=== PATIENT | female | born 1945 | race Caucasian/White ===

== ENCOUNTER → 2016-11-20 | Outpatient (CLI) | payer BC ==
[~2016-11-20] MED LIST: ADALIMUMAB SC; ANT25 PO; ASPI-435 PO; ATOR10TA82 PO; CENTRUM SILVERSILVE2 PO; CITRACAL PO; CZR50 PO; FLV1 PO; FOLI200T PO; GADAVIST IV PRN; METH2.5T PO; MISCTAB78 PO; NRV/5 PO; OMEP20CA9 PO; SENNTAB23 PO; TPRSR/50 PO; [UNRECOGNIZED DRUG - CODE] PO; [UNRECOGNIZED DRUG - OTHER] PO; [UNRECOGNIZED DRUG - OTHER] PO
[2016-11-20 13:24] LABS: BLOOD UREA NITROGEN 16 mg/dl (7-18); CREATININE 0.94 mg/dl (0.60-1.20)
--- NOTE | 2016-11-20 15:49 | DIAGNOSTIC IMAGING REPORT ---
MRI OF THE BRAIN WITHOUT AND WITH IV CONTRAST CLINICAL HISTORY: Left greater than right sensorineural hearing loss. COMPARISON STUDY: MRI of the brain July 29, 2012. TECHNIQUE: Utilizing a 1.5 Diamond magnet and dedicated coil, multiplanar, multiecho imaging of the brain was performed pre and postcontrast administration. IV administration of 5.5 mL of Gadavist contrast was uneventful. FINDINGS: There are no areas of restricted diffusion. No acute intracranial hemorrhage, midline shift or mass effect is present. Brain is normal for age. Ventricular system is normal. Basilar cisterns are patent. Flow-voids for the major intracranial vessels are present. There are no intracranial masses or areas of pathologic enhancement. There are no abnormalities within the internal auditory canals. No cerebellopontine angle mass is present. There is no fluid within the mastoid air. Semicircular canals are intact. There is mild mucosal thickening of the right maxillary sinus with a small air-fluid level. IMPRESSION: 1. Unremarkable MRI of the brain. 2. No abnormalities within the internal auditory canals. 3. Mild right maxillary sinus mucosal thickening and a small air-fluid level which may reflect acute sinusitis. Electronically signed by: Keyon Thompson M.D. 11/20/2016 3:48 PM Dictated Date/Time: 11/20/2016 3:41 PM
== END | disposition home or self-care (01) ==
LOC: C.MRI 12:20
DX: H90.42 Sensorineural hearing loss, unilateral, left ear, with unrestricted hearing on the contralateral side (principal)

== ENCOUNTER → 2017-01-20 | Outpatient (CLI) | payer BC ==
[~2017-01-20] MED LIST changes: -GADAVIST IV PRN
[2017-01-20 18:22] LABS: URINE APPEARANCE CLEAR (CLEAR); URINE BILIRUBIN NEG (NEG); URINE COLOR YELLOW; URINE NITRITE NEG (NEG); URINE SPECIFIC GRAVITY 1.013 (1.000-1.030); UROBILINOGEN NEG (NEG)
[2017-01-20 18:25] LABS: MANUAL MICROSCOPIC REQUIRED? NO; REVIEW REQ? NO
== END | disposition home or self-care (01) ==
LOC: C.LAB 17:41
PROVIDERS: ATTEND Physician Assistant
DX: R35.0 Frequency of micturition (principal)

== ENCOUNTER → 2017-02-18 | Outpatient (CLI) | payer BC ==
[~2017-02-18] MED LIST changes: -ATOR10TA82 PO; +ATOR10TA88 PO
--- NOTE | 2017-02-19 12:30 | MAMMOGRAPHY REPORT ---
BILATERAL DIGITAL SCREENING MAMMOGRAM WITH CAD: 02/18/2017 CLINICAL HISTORY: Routine screening. Patient has no complaints. TECHNIQUE: Current study was also evaluated with a Computer Aided Detection (CAD) system. Bilateral CC and MLO views were obtained. COMPARISON: Comparison is made to exams dated: 01/29/2016 mammogram, 01/25/2015 mammogram, 12/13/2013 [place], 12/07/2012 mammogram, 12/04/2011 mammogram, and 12/01/2010 mammogram - [facility]. BREAST COMPOSITION: The tissue of both breasts is heterogeneously dense, which may obscure small mas ses. FINDINGS: No suspicious masses, calcifications, or areas of architectural distortion are noted in ei ther breast. There has been no significant interval change compared to prior exams. Scattered bilater al benign-appearing calcifications are not significantly changed. IMPRESSION: ACR BI-RADS CATEGORY 2: BENIGN There is no mammographic evidence of malignancy. A 1 year screening mammogram is recommended. The pa tient will receive written notification of the results. Approximately 10% of breast cancers are not detected with mammography. A negative mammographic report should not delay biopsy if a clinically suggestive mass is present. Carmen Torres M.D. /:02/18/2017 14:53:55 Policy Cancellation Clerk: Luana PEGUERO(Yahir)(Mag)(BD), [facility] letter sent: Normal 1/2 BI-RADS Code: ACR BI-RADS Category 2: Benign
== END | disposition home or self-care (01) ==
LOC: C.MAMM 12:58
PROVIDERS: ATTEND Obstetrics & Gynecology
DX: Z12.31 Encounter for screening mammogram for malignant neoplasm of breast (principal); H90.42 Sensorineural hearing loss, unilateral, left ear, with unrestricted hearing on the contralateral side

== ENCOUNTER 2017-03-12 20:22 | Emergency (ER) | payer BC ==
[~2017-03-12] VITALS: Ht 154.9 cm; Wt 60.8 kg
[~2017-03-12 20:22] MED LIST changes: -ANT25 PO; -ASPI-435 PO; -CZR50 PO; -FLV1 PO; -MISCTAB78 PO; -NRV/5 PO; -SENNTAB23 PO; -TPRSR/50 PO
[2017-03-12 20:24] VITALS: TEMP 36.5; Ht 154.9 cm; Wt 60.8 kg
[2017-03-12] MEDS ORDERED: ONDANSETRON INJ 2 MG/ML 2 ML VIAL IV STA (21:39)
[2017-03-12] MEDS ORDERED: MECLIZINE HCL 25 MG TAB PO STA (21:39)
[2017-03-12] MEDS ORDERED: SODIUM CHLORIDE 0.9% 1000ML 1,000 ML IV STA (21:39)
[2017-03-12] MEDS ORDERED: SODIUM CHLORIDE 0.9% 1000ML 500 ML IV STA (21:39)
--- NOTE | 2017-03-12 21:39 | EMERGENCY ROOM VISIT NOTE ---
History Report prepared by Layla: Kevin Collado Under the Supervision of: Dr. Ben Luo M.D. First contact with patient: 21:32 Chief Complaint: DIZZY Stated Complaint: NAUSEA, DIZZY Nursing Triage Summary: Became dizzy and nauseated at 1830. She had taken a walk in the afternoon around 1500 and started drinking water thinking she was dehydrated, but it didn't help. Also drank some gatorade. Dizziness when sitting up, relieved with supine positioning. History of Present Illness The patient is a 71 year old female who presents to the Emergency Room with complaints of worsening dizziness that began at 1800 today, 3.5 hours prior to arrival. The patient notes that her dizziness began with a lack of balance and a "woozy" feeling. When she sat down and stood up again she felt as though "the room was spinning." The patient mentioned that she had gone for a long walk today and got very hot. She hydrated herself well following the walk, but continued to get dizzy. She denies any recent falls or traumatic injuries to her head, and does not have a headache. She has no history of stroke, and is not on any blood thinners. There have not been any urinary irregularities. 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 A total of 10 systems reviewed and were otherwise negative. Past Medical & Surgical Medical Problems: (1) Benign hypertension (2) HYPERLIPIDEMIA NEC/NOS (3) RHEUMATOID ARTHRITIS Family History Cancer Heart disease Hypertension Social History Smoking Status: Never Smoker Marital Status: Housing Status: lives with family Occupation Status: unemployed Current/Historical Medications Scheduled , 40 MG SC Q2W , 1 TAB PO DAILY , 1 TAB PO BID Amlodipine Besylate (Amlodipine Besylate), 5 MG PO QAM Aspirin (Aspirin 81), 81 MG PO QAM Atorvastatin (Lipitor), 10 MG PO DAILY Folic Acid (Folic Acid), 1 MG PO QAM Losartan Potassium (Losartan Potassium), 50 MG PO BID Methotrexate (Methotrexate), 10 MG PO WK Metoprolol Succinate (Metoprolol Succinate ER), 50 MG PO QAM Misc Natural Products (Osteo Bi-Flex Advanced Do), 1 TAB PO DAILY Omeprazole (Prilosec), 20 MG PO DAILY Sennosides-Docusate Sodium (Stool Softener), 1 TAB PO HS Scheduled PRN Meclizine HCl (Meclizine HCl), 1 TAB PO Q6H PRN for Dizziness or Vertigo Allergies Coded Allergies: No Known Allergies (Verified , 03/12/17) Physical Exam Vital Signs Date Time Temp Pulse Resp B/P (MAP) Pulse Ox O2 Delivery O2 Flow Rate FiO2 03/13/17 00:01 142/87 03/12/17 23:57 94 03/12/17 23:52 67 12 96 03/12/17 23:47 72 12 91 03/12/17 23:32 69 93 03/12/17 23:31 147/89 03/12/17 23:22 153/87 03/12/17 23:17 71 14 97 03/12/17 22:32 90 18 95 03/12/17 22:27 80 23 97 03/12/17 22:12 66 96 03/12/17 21:57 71 17 96 03/12/17 21:51 167/102 03/12/17 21:49 73 18 169/99 76 176/103 80 167/102 03/12/17 21:48 169/99 03/12/17 21:42 74 14 97 03/12/17 21:31 174/99 03/12/17 21:27 75 96 03/12/17 21:12 71 96 03/12/17 21:07 72 12 96 03/12/17 21:01 154/99 03/12/17 20:53 173/103 03/12/17 20:52 82 22 98 03/12/17 20:50 82 03/12/17 20:32 163/98 03/12/17 20:24 36.5 77 18 184/104 93 Room Air Physical Exam GENERAL: Patient is in no acute distress. HEENT: No acute trauma, normocephalic atraumatic, mucous membranes moist, no nasal congestion, no scleral icterus. No nystagmus. NECK: No stridor, no adenopathy, no meningismus, trachea is midline. LUNGS: Clear to auscultation bilaterally, no wheeze, no rhonchi, breath sounds equal. HEART: Without murmurs gallops or rubs, regular rate and rhythm. ABDOMEN: Soft, nontender, bowel sounds positive, no hernias, no peritonitis. EXTREMITIES: No cyanosis or edema, full range of motion of all the joints without pain or difficulty, no signs for acute trauma. NEUROLOGIC: No pronator drift or cerebellar dysfunction. No speech slur or facial droop appreciated on exam. Awake and Ox3. SKIN: No rash, no jaundice, no diaphoresis. Medical Decision & Procedures ER Provider Diagnostic Interpretation: Orthostatic vitals signs are negative. Radiology results as stated below per my review and radiologist interpretation: CT HEAD WITHOUT CONTRAST (CT) CLINICAL HISTORY: Acute change in mental status weakness COMPARISON STUDY: MRI the brain dated 11/20/2016 TECHNIQUE: Axial CT of the brain is performed from the vertex to the skull base. IV contrast was not administered for this examination. A dose lowering technique was utilized adhering to the principles of ALARA. CT DOSE: 537.48 mGy.cm FINDINGS: No intra or extra-axial mass lesions are visualized. There is no CT evidence of acute cortical infarction. There is no evidence of midline shift. There is no acute hemorrhage. No calvarial fractures are visualized. There is no evidence of pathologic ventricular dilatation. There is no evidence of acute sinusitis IMPRESSION: Normal noncontrast head CT for age Electronically signed by: Michael Bronson M.D. 03/12/2017 10:54 PM Dictated Date/Time: 03/12/2017 10:53 PM Laboratory Results 03/12/17 22:00 Red Blood Count 4.72, Mean Corpuscular Volume 87.1, Mean Corpuscular Hemoglobin 31.4, Mean Corpuscular Hemoglobin Concent 36.0, Mean Platelet Volume 11.4, Neutrophils (%) (Auto) 58.7, Lymphocytes (%) (Auto) 31.9, Monocytes (%) (Auto) 7.2, Eosinophils (%) (Auto) 1.5, Basophils (%) (Auto) 0.3, Neutrophils # (Auto) 4.35, Lymphocytes # (Auto) 2.36, Monocytes # (Auto) 0.53, Eosinophils # (Auto) 0.11, Basophils # (Auto) 0.02 03/12/17 22:00 Test 03/12/17 21:25 03/12/17 22:00 Urine Color YELLOW Urine Appearance CLEAR (CLEAR) Urine pH 8.5 (4.5-7.5) Urine Specific Ernest 1.011 (1.000-1.030) Urine Protein NEG (NEG) Urine Glucose (UA) NEG (NEG) Urine Ketones NEG (NEG) Urine Occult Blood NEG (NEG) Urine Nitrite NEG (NEG) Urine Bilirubin NEG (NEG) Urine Urobilinogen NEG (NEG) Urine Leukocyte Esterase NEG (NEG) White Blood Count 7.40 K/uL (4.8-10.8) Red Blood Count 4.72 M/uL (4.2-5.4) Hemoglobin 14.8 g/dL (12.0-16.0) Hematocrit 41.1 % (37-47) Mean Corpuscular Volume 87.1 fL (80-100) Mean Corpuscular Hemoglobin 31.4 pg (25-34) Mean Corpuscular Hemoglobin Concent 36.0 g/dl (32-36) Platelet Count 239 K/uL (130-400) Mean Platelet Volume 11.4 fL (7.4-10.4) Neutrophils (%) (Auto) 58.7 % Lymphocytes (%) (Auto) 31.9 % Monocytes (%) (Auto) 7.2 % Eosinophils (%) (Auto) 1.5 % Basophils (%) (Auto) 0.3 % Neutrophils # (Auto) 4.35 K/uL (1.4-6.5) Lymphocytes # (Auto) 2.36 K/uL (1.2-3.4) Monocytes # (Auto) 0.53 K/uL (0.11-0.59) Eosinophils # (Auto) 0.11 K/uL (0-0.5) Basophils # (Auto) 0.02 K/uL (0-0.2) RDW Standard Deviation 42.6 fL (36.4-46.3) RDW Coefficient of Variation 13.2 % (11.5-14.5) Immature Granulocyte % (Auto) 0.4 % Immature Granulocyte # (Auto) 0.03 K/uL (0.00-0.02) Anion Gap 7.0 mmol/L (3-11) Est Creatinine Clear Calc Drug Dose 50.0 ml/min Estimated GFR () 79.3 Estimated GFR (Non- 68.5 BUN/Creatinine Ratio 16.8 (10-20) Calcium Level 9.0 mg/dl (8.5-10.1) Total Bilirubin 0.6 mg/dl (0.2-1) Aspartate Amino Transf (AST/SGOT) U/L (15-37) Alanine Aminotransferase (ALT/SGPT) 23 U/L (12-78) Alkaline Phosphatase 83 U/L (45-117) Total Protein 8.2 gm/dl (6.4-8.2) Albumin 3.8 gm/dl (3.4-5.0) Globulin 4.4 gm/dl (2.5-4.0) Albumin/Globulin Ratio 0.9 (0.9-2) Thyroid Stimulating Hormone (TSH) 1.000 uIu/ml (0.300-4.500) Laboratory results reviewed by me. Medications Administered Medications (Trade) Dose Ordered Sig/Louie Route Start Time Stop Time Status Last Admin Dose Admin Sodium Chloride 500 ml @ 999 mls/hr Q31M STAT IV 03/12/17 21:39 03/12/17 22:09 DC 03/12/17 21:39 999 MLS/HR Ondansetron HCl (Zofran Inj) 4 mg NOW STAT IV 03/12/17 21:39 03/12/17 21:41 DC 03/12/17 22:37 4 MG Sodium Chloride 1,000 ml @ 200 mls/hr Q5H STAT IV 03/12/17 21:39 03/13/17 02:38 03/12/17 22:38 200 MLS/HR Meclizine HCl (Antivert Tab) 25 mg NOW STAT PO 03/12/17 21:39 03/12/17 21:41 DC 03/12/17 22:37 25 MG Sodium Chloride 500 ml @ 999 mls/hr Q31M STAT IV 03/12/17 22:51 03/12/17 23:22 DC 03/12/17 23:23 999 MLS/HR Meclizine HCl (Antivert 25MG Home Pack) 1 homepack UD ONCE PO 03/13/17 00:15 03/13/17 00:16 DC 03/13/17 00:18 1 HOMEPACK ECG Indication: other (Vertigo) Rate (beats per minute): 67 Rhythm: normal sinus Findings: RBBB, no acute ischemic change, no ectopy ED Course 2133: The patient was evaluated in room C8. A complete history and physical exam was performed. 2138: Ordered Antivert 25 mg PO, Sodium Chloride 1000 mL @ 200 mL/hr IV, Zofran 4 mg IV, Sodium Chloride 500 mL @ 999 mL/hr IV. 2251: Ordered Sodium Chloride 500 mL @ 999 mL/hr IV. Medical Decision Differential Diagnosis includes; Vertigo, Stroke, UTI, dehydration, anemia, electrolyte imbalance. There is no leukocytosis or anemia. Sodium somewhat low but not low enough to cause her symptoms. No evidence for renal failure. No hepatitis. The patient appears to be in a euthyroid state. Orthostatic vital signs were negative. Brain CT shows no acute bleed or mass effect. Urinalysis does not show infection. EKG shows a sinus rhythm, no acute ischemia. On exam, there are no focal neurologic deficits. The patient presents with what sounds like vertigo. She had been nauseated. She was worse with position change. She received IV saline, IV Zofran and oral meclizine. She feels improved but still dizzy at times. The patient's blood pressure was fairly high but she was asymptomatic. She states her normal blood pressure is not this high, she feels she may just be worried and anxious. Her blood pressure did come down to a reasonable number while here in the emergency room. The patient is being discharged on oral meclizine for presumed vertigo. She may have a component of dehydration here as well as she was outside today and sweating quite a bit. The patient was encouraged to return here if not continuing to improve. She was discharged feeling better than when she had first arrived. Medication Reconcilliation Current Medication List: was personally reviewed by me Blood Pressure Screening Patient's blood pressure: Elevated blood pressure Blood pressure disposition: Elevated BP felt to be situational Impression Primary Impression: Vertigo Additional Impression: Dehydration Scribe Attestation The scribe's documentation has been prepared under my direction and personally reviewed by me in its entirety. I confirm that the note above accurately reflects all work, treatment, procedures, and medical decision making performed by me. Departure Information Dispostion Home / Self-Care Prescriptions Meclizine HCl (Meclizine HCl) 25 Mg Tab 1 TAB PO Q6H Y for Dizziness or Vertigo, #10 TAB Prov: Ben Luo M.D. 03/13/17 Referrals No Doctor, Assigned (PCP) Patient Instructions My [facility] Problem Qualifiers
[2017-03-12 22:16] LABS: BASO % 0.3 %; BASO ABS # 0.02 K/uL (0-0.2); COMPLETE YES; EOS % 1.5 %; HEMATOCRIT 41.1 % (37-47); IG% 0.4 %; LYMPH % 31.9 %; LYMPH ABS # 2.36 K/uL (1.2-3.4); MEAN CELL VOLUME 87.1 fL (80-100); MEAN CORPUSCULAR HEMOGLOBIN 31.4 pg (25-34); MEAN PLATELET VOLUME 11.4 fL (7.4-10.4); MONO % 7.2 %; NEUT % 58.7 %; PLATELET COUNT 239 K/uL (130-400); RED BLOOD COUNT 4.72 M/uL (4.2-5.4)
[2017-03-12 22:21] LABS: URINE APPEARANCE CLEAR (CLEAR); URINE BILIRUBIN NEG (NEG); URINE COLOR YELLOW; URINE NITRITE NEG (NEG); URINE PH 8.5 (4.5-7.5); URINE SPECIFIC GRAVITY 1.011 (1.000-1.030); UROBILINOGEN NEG (NEG); ZZUR CULT IF INDIC CLEAN CATCH NO
[2017-03-12 22:28] LABS: MANUAL MICROSCOPIC REQUIRED? NO; REVIEW REQ? NO
[2017-03-12 22:47] LABS: ALB/GLOB RATIO 0.9 (0.9-2); ALKALINE PHOSPHATASE 83 U/L (45-117); ALT/SGPT 23 U/L (12-78); BLOOD UREA NITROGEN 14 mg/dl (7-18); BUN/CREATININE RATIO 16.8 (10-20); CARBON DIOXIDE 25 mmol/L (21-32); CHLORIDE 98 mmol/L (98-107); CREATININE 0.85 mg/dl (0.60-1.20); GLUCOSE 99 mg/dl (70-99); SODIUM 130 mmol/L (136-145)
[2017-03-12] MEDS ORDERED: SODIUM CHLORIDE 0.9% 500ML 500 ML IV STA (22:51)
--- NOTE | 2017-03-12 22:55 | DIAGNOSTIC IMAGING REPORT ---
CT HEAD WITHOUT CONTRAST (CT) CLINICAL HISTORY: Acute change in mental status weakness COMPARISON STUDY: MRI the brain dated 11/20/2016 TECHNIQUE: Axial CT of the brain is performed from the vertex to the skull base. IV contrast was not administered for this examination. A dose lowering technique was utilized adhering to the principles of ALARA. CT DOSE: 537.48 mGy.cm FINDINGS: No intra or extra-axial mass lesions are visualized. There is no CT evidence of acute cortical infarction. There is no evidence of midline shift. There is no acute hemorrhage. No calvarial fractures are visualized. There is no evidence of pathologic ventricular dilatation. There is no evidence of acute sinusitis IMPRESSION: Normal noncontrast head CT for age Electronically signed by: Michael Bronson M.D. 03/12/2017 10:54 PM Dictated Date/Time: 03/12/2017 10:53 PM
[2017-03-12] MEDS ORDERED: ASPI-435 PO (23:08)
[2017-03-12] MEDS ORDERED: MISCTAB78 PO (23:08)
[2017-03-12] MEDS ORDERED: CZR50 PO (23:08)
[2017-03-12] MEDS ORDERED: FLV1 PO (23:08)
[2017-03-12] MEDS ORDERED: SENNTAB23 PO (23:09)
[2017-03-12] MEDS ORDERED: NRV/5 PO (23:09)
[2017-03-12] MEDS ORDERED: TPRSR/50 PO (23:09)
[2017-03-12 23:52] VITALS: PULSE 67
[2017-03-12 23:57] VITALS: O2SAT 94
[2017-03-13 00:01] VITALS: BP 142/87
[2017-03-13] MEDS ORDERED: ANT25 PO (00:09)
[2017-03-13] MEDS ORDERED: MECLIZINE HCL 25MG HOME PACK PO ONE (00:15)
== END 2017-03-13 00:24 | disposition home or self-care (01) ==
LOC: C.EDB 20:23 → C.EDC 03-13 00:24
DX: R42 Dizziness and giddiness (principal); E86.0 Dehydration; I45.10 Unspecified right bundle-branch block; I10 Essential (primary) hypertension; E78.5 Hyperlipidemia, unspecified; M06.9 Rheumatoid arthritis, unspecified; Z79.82 Long term (current) use of aspirin; Z79.899 Other long term (current) drug therapy; Z80.9 Family history of malignant neoplasm, unspecified; Z82.49 Family history of ischemic heart disease and other diseases of the circulatory system

== ENCOUNTER → 2017-04-19 | Outpatient (CLI) | payer BC ==
[~2017-04-19] MED LIST changes: +ANT25 PO; +ASPI-435 PO; +CZR50 PO; +FLV1 PO; -FOLI200T PO; +MISCTAB78 PO; +NRV/5 PO; +SENNTAB23 PO; +TPRSR/50 PO; -[UNRECOGNIZED DRUG - CODE] PO; -[UNRECOGNIZED DRUG - OTHER] PO
[2017-04-19 14:03] LABS: BASO % 0.3 %; BASO ABS # 0.02 K/uL (0-0.2); COMPLETE YES; EOS % 2.1 %; HEMATOCRIT 39.5 % (37-47); IG% 0.9 %; LYMPH % 32.2 %; LYMPH ABS # 2.27 K/uL (1.2-3.4); MEAN CELL VOLUME 89.4 fL (80-100); MEAN CORPUSCULAR HEMOGLOBIN 31.4 pg (25-34); MEAN CORPUSCULAR HGB CONC 35.2 g/dl (32-36); MEAN PLATELET VOLUME 12.7 fL (7.4-10.4); MONO % 6.8 %; NEUT % 57.7 %; PLATELET COUNT 237 K/uL (130-400); RED BLOOD COUNT 4.42 M/uL (4.2-5.4); WHITE BLOOD COUNT 7.05 K/uL (4.8-10.8)
[2017-04-19 14:25] LABS: ALB/GLOB RATIO 0.9 (0.9-2); ALT/SGPT 24 U/L (12-78); AST/SGOT 17 U/L (15-37); BLOOD UREA NITROGEN 15 mg/dl (7-18); BUN/CREATININE RATIO 17.9 (10-20); CARBON DIOXIDE 25 mmol/L (21-32); CHLORIDE 106 mmol/L (98-107); CHOLESTEROL 194 mg/dl (0-200); CHOLESTEROL/HDL RATIO 3.6; CREATININE 0.82 mg/dl (0.60-1.20); GLUCOSE 88 mg/dl (70-99); HDL CHOLESTEROL 54 mg/dl; LDL CHOLESTEROL CALCULATED 104 mg/dl; POTASSIUM 3.9 mmol/L (3.5-5.1); SODIUM 137 mmol/L (136-145); TRIGLYCERIDES 179 mg/dl (0-150); VERY LOW DENSITY LIPOPROT CALC 36 mg/dl
[2017-04-19 14:33] LABS: ALKALINE PHOSPHATASE 82 U/L (45-117)
== END | disposition home or self-care (01) ==
LOC: C.LABBC 10:26
PROVIDERS: ATTEND Internal Medicine Geriatric Medicine
DX: M06.9 Rheumatoid arthritis, unspecified (principal); M85.80 Other specified disorders of bone density and structure, unspecified site; E04.1 Nontoxic single thyroid nodule; R00.2 Palpitations; I10 Essential (primary) hypertension

== ENCOUNTER → 2017-06-19 | Outpatient (CLI) | payer BC ==
[~2017-06-19] MED LIST changes: +ATOR10TA82 PO; -ATOR10TA88 PO
[2017-06-19 13:55] LABS: URINE APPEARANCE TURBID (CLEAR); URINE BILIRUBIN NEG (NEG); URINE COLOR DK YELLOW; URINE NITRITE NEG (NEG); URINE SPECIFIC GRAVITY 1.019 (1.000-1.030); UROBILINOGEN NEG (NEG)
[2017-06-19 14:00] LABS: MANUAL MICROSCOPIC REQUIRED? NO; REVIEW REQ? NO
== END | disposition home or self-care (01) ==
LOC: C.LABSPEC 12:18
PROVIDERS: ATTEND Internal Medicine
DX: R39.9 Unspecified symptoms and signs involving the genitourinary system (principal)

== ENCOUNTER → 2017-10-05 | Outpatient (CLI) | payer BC ==
--- NOTE | 2017-10-05 11:58 | DIAGNOSTIC IMAGING REPORT ---
L LOWER EXT JOINT WITHOUT CLINICAL HISTORY: M76.60 Achilles tendinitis tinnitus TECHNIQUE: Multiaxial MRI acquisition COMPARISON STUDY: None FINDINGS: Considerable soft tissue edematous change anterior to the Achilles tendon. Mild increase in signal of the Achilles tendon consistent with tendinopathy. No evidence for significant tear at this time. Mild peroneal tendinopathy. No evidence for muscular or ligamentous disruption. Signal characteristics of the osseous structures show mild degenerative changes throughout. Small 4 mm osteochondral defect medial talar dome. No significant loose bodies. No significant joint effusion. IMPRESSION: 1. Tendinitis of the inferior Achilles tendon with considerable edematous change anterior to the Achilles tendon. 2. No evidence for tendinous disruption. 3. Mild peroneal tendinitis. 4. Minimal/mild degenerative change of the osseous structures with no acute process. The above report was generated using voice recognition software. It may contain grammatical, syntax or spelling errors. Electronically signed by: Frederick Baxter M.D. 10/05/2017 11:56 AM Dictated Date/Time: 10/05/2017 11:49 AM
== END | disposition home or self-care (01) ==
LOC: C.MRIBC 10:52
PROVIDERS: ATTEND Internal Medicine Geriatric Medicine
DX: M76.60 Achilles tendinitis, unspecified leg (principal)

== ENCOUNTER → 2017-10-20 | Outpatient (CLI) | payer BC ==
--- NOTE | 2017-10-20 10:13 | DIAGNOSTIC IMAGING REPORT ---
CHEST 2 VIEWS ROUTINE CLINICAL HISTORY: 72 years-old Female presenting with R07.9 chest pain. TECHNIQUE: PA and lateral views of the chest were obtained. COMPARISON: 08/25/2014. FINDINGS: Cardiomediastinal silhouette normal. Lungs and pleural spaces clear. Degenerative changes of the thoracic spine and scoliosis. Osteopenia may be present. Upper abdomen normal. IMPRESSION: 1. No acute cardiopulmonary disease. Electronically signed by: Camron Vyas M.D. 10/20/2017 10:12 AM Dictated Date/Time: 10/20/2017 10:10 AM
== END | disposition home or self-care (01) ==
LOC: C.RADBC 09:41
PROVIDERS: ATTEND Internal Medicine Geriatric Medicine
DX: R07.9 Chest pain, unspecified (principal)

== ENCOUNTER → 2017-11-05 | Outpatient (CLI) | payer BC ==
--- NOTE | 2017-11-05 13:55 | MAMMOGRAPHY REPORT ---
UNILATERAL RIGHT DIGITAL DIAGNOSTIC MAMMOGRAM TOMOSYNTHESIS WITH CAD AND TARGETED RIGHT ULTRASOUND: CLINICAL HISTORY: The patient presents with right lateral breast discomfort for approximately 2 month s. She denies any palpable lumps, nipple discharge, skin changes, or other complaints. TECHNIQUE: Breast tomosynthesis in addition to standard 2D mammography was performed. Current study was also evaluated with a Computer Aided Detection (CAD) system. Right CC and MLO 2D and tomosynthes is images were obtained. COMPARISON: Comparison is made to exams dated: 02/18/2017 mammogram, 01/29/2016 mammogram, 01/25/2015 [place], 12/13/2013 mammogram, 12/07/2012 mammogram, and 12/04/2011 mammogram - [facility]. BREAST COMPOSITION: The tissue of the right breast is heterogeneously dense, which may obscure small masses. FINDINGS: A square marker ventura the site of pain pointed out by the patient in the right upper outer breast. There are no suspicious masses, calcifications, or areas of architectural distortion seen wi thin the right breast mammographically. There has been no significant interval change compared to pr ior exams. Scattered benign-appearing right breast calcifications are stable. Targeted ultrasound was performed of the area of pain pointed out by the patient in the right upper o uter and lower outer quadrants far laterally. Sonographically normal tissue is seen, without evidenc e of a mass or other suspicious sonographic abnormality. IMPRESSION: ACR BI-RADS CATEGORY 2: BENIGN, TARGETED ULTRASOUND ACR BI-RADS CATEGORY 2: BENIGN No suspicious mammographic or sonographic abnormality to explain right lateral breast pain. There is no mammographic or targeted sonographic evidence of malignancy. Recommend clinical follow-up for ri ght breast pain, and recommend routine bilateral screening mammograms which are due January 2018. The patient has been verbally notified of the results. Approximately 10% of breast cancers are not detected with mammography. A negative mammographic report should not delay biopsy if a clinically suggestive mass is present. Carmen Torres M.D. /:11/05/2017 11:34:25 Bail Bondsman: Gabby Barba [facility] letter sent: Normal 1/2 BI-RADS Code: ACR BI-RADS Category 2: Benign Ultrasound BI-RADS: ACR BI-RADS Category 2: Benign
== END | disposition home or self-care (01) ==
LOC: C.MAMM 11:13
PROVIDERS: ATTEND Internal Medicine Geriatric Medicine
DX: N64.4 Mastodynia (principal)

== ENCOUNTER → 2017-12-14 | Outpatient (CLI) | payer BC ==
[2017-12-14 13:25] LABS: BASO % 0.4 %; BASO ABS # 0.03 K/uL (0-0.2); EOS % 1.8 %; EOS ABS # 0.12 K/uL (0-0.5); HEMATOCRIT 42.6 % (37-47); HEMOGLOBIN 14.7 g/dL (12.0-16.0); IG# 0.07 K/uL (0.00-0.02); LYMPH % 39.1 %; LYMPH ABS # 2.63 K/uL (1.2-3.4); MEAN CELL VOLUME 90.4 fL (80-100); MEAN CORPUSCULAR HEMOGLOBIN 31.2 pg (25-34); MEAN CORPUSCULAR HGB CONC 34.5 g/dl (32-36); MEAN PLATELET VOLUME 12.2 fL (7.4-10.4); MONO % 9.5 %; MONO ABS # 0.64 K/uL (0.11-0.59); NEUT % 48.2 %; NEUT ABS # 3.24 K/uL (1.4-6.5); PLATELET COUNT 275 K/uL (130-400); RED CELL DISTRIBUTION WIDTH CV 12.9 % (11.5-14.5); RED CELL DISTRIBUTION WIDTH SD 42.9 fL (36.4-46.3); WHITE BLOOD COUNT 6.73 K/uL (4.8-10.8)
[2017-12-14 14:12] LABS: ALBUMIN 3.8 gm/dl (3.4-5.0); ALT/SGPT 21 U/L (12-78); AST/SGOT 15 U/L (15-37); BLOOD UREA NITROGEN 12 mg/dl (7-18); CARBON DIOXIDE 26 mmol/L (21-32); CREATININE 1.16 mg/dl (0.60-1.20); GLUCOSE 76 mg/dl (70-99); POTASSIUM 4.4 mmol/L (3.5-5.1); SODIUM 132 mmol/L (136-145)
[2017-12-14 14:22] LABS: ALKALINE PHOSPHATASE 85 U/L (45-117); TOTAL PROTEIN 7.8 gm/dl (6.4-8.2)
== END | disposition home or self-care (01) ==
LOC: C.LABBC 10:50
PROVIDERS: ATTEND Internal Medicine Rheumatology
DX: R53.83 Other fatigue (principal); M05.79 Rheumatoid arthritis with rheumatoid factor of multiple sites without organ or systems involvement

== ENCOUNTER → 2018-03-15 | Outpatient (CLI) | payer BC ==
--- NOTE | 2018-03-17 07:55 | MAMMOGRAPHY REPORT ---
BILATERAL DIGITAL SCREENING MAMMOGRAM TOMOSYNTHESIS WITH CAD: 03/15/2018 CLINICAL HISTORY: Routine screening. Patient has no complaints. TECHNIQUE: The study was acquired using full field digital technology and interpreted from soft copy. Breast tomosynthesis in addition to standard 2D mammography was performed. Current study was also ev aluated with a Computer Aided Detection (CAD) system. COMPARISON: Comparison is made to exams dated: 11/05/2017 mammogram, 02/18/2017 mammogram, 01/29/2016 [place] mmogram, 01/25/2015 mammogram, 12/13/2013 mammogram, and 12/07/2012 mammogram - [facility] ter. BREAST COMPOSITION: The tissue of both breasts is heterogeneously dense, which may obscure small mass es. FINDINGS: There are scattered benign coarse calcifications and minimal vascular calcification in the breasts. No suspicious mass, architectural distortion or cluster of microcalcifications is seen. IMPRESSION: ACR BI-RADS CATEGORY 1: NEGATIVE There is no mammographic evidence of malignancy. A 1 year screening mammogram is recommended.( 019) The patient will receive written notification of the results. Some breast cancers are not detected with mammography. A negative mammographic report should not pedro y biopsy if a clinically suggestive mass is present. Rima Caraballo M.D. ay/:03/15/2018 16:20:32 Foundry Technician: RT Ward(R)(M)(BD), [facility] letter sent: Normal 1/2 BI-RADS Code: ACR BI-RADS Category 1: Negative
== END | disposition home or self-care (01) ==
LOC: C.MAMM 09:15
PROVIDERS: ATTEND Obstetrics & Gynecology
DX: Z12.31 Encounter for screening mammogram for malignant neoplasm of breast (principal)

== ENCOUNTER 2022-08-01 18:19 | Inpatient (IN) ==
[2022-08-01] MEDS ORDERED: SODIUM CHLORIDE 0.9% 1000ML 1,000 ML IV ONE (18:30)
--- NOTE | 2022-08-01 18:40 | Emergency Department Note ---
Impression & Plan COVID-19 ADMIT ED Provider Note HPI: The patient is a 77-year-old female who presents emergency department with chief complaint of dry heaving and headache. Patient states she was seen earlier today and diagnosed with COVID-19 infection, patient states she went home and took a dose of Paxil of it, she states she then took a nap. Patient states when she woke up she had a pounding headache and began to have episodes of dry heaving. Patient therefore returned to the emergency department for reassessment. On arrival here to the ED the patient is mildly tachycardic, febrile, she is saturating well on room air on my initial assessment. She does not display any focal deficits, she is alert and oriented x3. ROS: -GI: Nausea -Neuro: Headache -General: COVID-19 infection *10 point review systems was conducted and is otherwise negative unless stated above *Outpatient medications and allergy history reviewed PE: General: Alert HEENT: Normocephalic, trachea midline Eyes: Extraocular eye movement is intact, no scleral erythema Pulmonary: Clear to auscultation bilaterally, no wheezing Cardio: Regular rate and rhythm GI: Abdomen is soft, nontender : No suprapubic tenderness MSK: No evidence of trauma or malformation of the extremities, no edema Skin: No evidence of rash Neuro: Alert, no focal deficits Psychiatric: Cooperative threat monitoring analyst: - An order was placed for continuous cardiac monitoring - Patient was noted to be in sinus rhythm with a rate of 105 EKG: Rate: 108 Rhythm: Sinus tachycardia Intervals: MS 148 ms, QRS 140 ms, QTC [address] changes: No ST elevation Time: 1835 Interventions provided in ED: -IV fluid bolus, Tylenol Medical Decision Making: Patient presented to the emergency department with some nausea, states she woke up with a headache, she was evaluated here in the ED earlier today and diagnosed with COVID-19, she was started on Paxil Gonzalo. Patient states she did take 1 dose of this medication today prior to returning to the emergency department. IV was established, lab work obtained, patient was placed on vehicle monitor technician. Patient was given IV fluids as well as Tylenol, Zofran, Reglan, and Benadryl. CT imaging of the head does not show any evidence of an acute intracranial process, chest x-ray shows a possible left-sided pneumonia. Patient's lab work shows no leukocytosis, blood cultures were drawn in the ED given the patient's presenting tachycardia and fever. On my reassessment the patient is on nasal cannula oxygen, per bedside RN patient had an episode of desaturation to 88%. Patient states she feels "terrible". Given that this is her second presentation in addition to her oxygen dropping here in the ED, I do feel that she needs to be admitted to the hospital for further care. [facility] for admission and the patient was admitted in stable condition. * CRITICAL CARE TIME: (35) minutes -Hypoxia with oxygen saturations less than 90% on room air requiring supplemental oxygen for correction, time spent at the bedside, interpretation of diagnostic studies and EKG, arrangement of admission Diagnosis: 1. Hypoxia, acute 2. COVID-19 infection 3. Headache, acute, non-intractable 4. Nausea Disposition: Admission Frederick Garza DO Emergency Medicine Past Med/Surg History Medical History Age-related macular degeneration Atrial premature complex Fracture, humerus GERD (gastroesophageal reflux disease) Hearing loss Hyperlipidemia Hypertension Migraine headache Osteopenia Palpitations Postmenopausal atrophic vaginitis PVC's (premature ventricular contractions) RBBB (right bundle branch block) Rheumatoid arthritis Rib fracture Sensorineural hearing loss (SNHL) of both ears Solitary thyroid nodule (~2008) UTI (urinary tract infection) Surgical History H/O shoulder surgery History of section History of colonoscopy History of esophagogastroduodenoscopy (EGD) History of robot-assisted laparoscopic hysterectomy Hx of cataract extraction Hx of hand surgery Nausea and vomiting after administration of anesthetic agent Status post right knee replacement (~2019) Family History Father Cancer Myocardial infarction Unknown Depression Heart disease Hyperlipidemia Substance use disorder Stroke syndrome Hypertension Thyroid disorder Grandfather (Maternal) Prostate cancer Other History of tonsillectomy Denies family history of Ovarian cancer Breast cancer Colorectal cancer Social History Smoking Status: Never smoker Tobacco Type: Cigarettes Age Started Using Tobacco: 19; Age Quit Using Tobacco: 22; Cigarettes Per Day: social smoker; Second Hand Exposure: No; Hx Alcohol Use: Yes Alcohol type: wine Alcohol Intake Frequency Comment: 1-2 glasses a week Hx Substance Use: No Preferred Language: Citizen Of [place] Communication Ability: Effective Visual Impairment: Limited Hearing Ability: Use of Hearing Aid 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 Lab Analyst Required: No Beliefs That Will Affect Care: None marital status: Current Living Situation: Spouse current occupational status: retired How many Children do You have: 2 Feels Safe at Home: Yes Childhood Exposure to Second-Hand Smoke: No caffeine: Yes (drinks coffee in morning ) Dental Care, Regularly: Yes Physical Activity Frequency: 3-4 Times per Week Seatbelt Use: always Sunscreen Use: Yes Assistive Devices: Contacts and Hearing Aid - Bilateral Allergies Allergies Allergy/AdvReac Type Severity Reaction Status Date / Time ciprofloxacin [From Cipro] Allergy Unknown Unknown Verified 08/01/22 19:31 etanercept [From Enbrel] AdvReac Intermediate SWELLING Verified 08/01/22 19:31 AT INJECTION SITE hydrochlorothiazide AdvReac Intermediate LEG CRAMPS Verified 08/01/22 19:31 lisinopril AdvReac Intermediate Cough Verified 08/01/22 19:31 Home Meds Home Medications Medication Instructions Recorded Confirmed calcium carbonate 500 mg-vitamin 1 tab PO HS 12/30/18 08/01/22 D3 5 mcg (200 unit) tablet (Calcium 500 + D) certolizumab pegol 400 mg/2 mL 200 mg subcut .[id number] 07/08/20 08/01/22 (200 mg/mL x2) subcutaneous syringe kit (Cimzia) multivitamin 1 tab PO QAM 08/21/20 08/01/22 vitamins A,C,P-xgxw-zfmmom 2,148 1 tab PO BID 06/23/21 08/01/22 mcg-113 mg-45 mg-17.4 mg tablet (PreserVision AREDS) zinc gluconate 50 mg tablet 50 mg PO DAILY 07/08/22 08/01/22 telmisartan 80 mg tablet 80 mg PO DAILY 07/20/22 08/01/22 Previous Rx's Medication Instructions Recorded amlodipine 2.5 mg tablet 2.5 mg PO QAM #90 tabs 11/12/21 estradiol 0.01% (0.1 mg/gram) 1 g vaginal 2XWK #42.5 grams 03/04/22 vaginal cream metoprolol succinate 50 mg 50 mg PO QAM #90 tabs 07/15/22 tablet,extended release 24 hr atorvastatin 20 mg tablet 40 mg PO HS #180 tabs 07/22/22 omeprazole 20 mg capsule,delayed 20 mg PO QAM #90 caps 07/22/22 release hydrocodone-homatropine 5 mg-1.5 5 ml PO Q6H PRN cough #240 mL 07/28/22 mg/5 mL oral syrup (Hydrocodone Compound) azithromycin 250 mg tablet See Rx Instructions PO .COMPLEX #6 07/29/22 tabs nirmatrelvir 300 mg (150 mg See Rx Instructions PO .COMPLEX 08/01/22 x2)-ritonavir 100 mg tablet,dose #30 ea pack(EUA) (Paxlovid) Results & Data (ED) Vital Signs Vital Signs - 24 hr 08/01/22 18:24 08/01/22 18:51 08/01/22 18:51 Temperature 39 C H Temperature Source Oral Pulse Rate 112 H Pulse Rate [Right Finger] 105 H Respiratory Rate 18 Respiratory Effort / Characteristics Non-Labored Respiratory Depth Normal Respiratory Pattern Regular Blood Pressure 136/82 Blood Pressure [Right Arm] 169/108 H Blood Pressure Mean 100 Blood Pressure Mean [Right Arm] 128 Pulse Oximetry 90 93 97 Oxygen Delivery Method Room Air Nasal Cannula Nasal Cannula Oxygen Flow Rate 2 2 Sepsis Recent Fever Within 48 Hours Yes Sepsis New/Unexplained Change in Mental Status No Sepsis Action Taken by Nursing Physician Notified 08/01/22 19:30 08/01/22 19:46 08/01/22 19:55 Temperature 38.0 C H Temperature Source Oral Pulse Rate Pulse Rate [Right Finger] 107 H 104 H Respiratory Rate Respiratory Effort / Characteristics Respiratory Depth Respiratory Pattern Blood Pressure Blood Pressure [Right Arm] 141/91 H Blood Pressure Mean Blood Pressure Mean [Right Arm] 107 Pulse Oximetry 97 97 Oxygen Delivery Method Nasal Cannula Room Air Oxygen Flow Rate 2 Sepsis Recent Fever Within 48 Hours Sepsis New/Unexplained Change in Mental Status Sepsis Action Taken by Nursing Laboratory Data Result diagrams: 08/01/22 18:38 08/01/22 18:38 Lab Results 08/01/22 08/01/22 08/01/22 Range/Units 18:38 18:38 18:38 WBC 8.14 (4.8-10.8) K/ul RBC 4.13 (3.93-5.22) M/uL Hgb 12.8 (12.0-16.0) g/dl Hct 37.7 (34.1-44.9) % MCV 91.3 (80.0-100.0) fL MCH 31.0 (25.0-34.0) pg MCHC 34.0 (32.0-36.0) g/dL RDW Std Deviation 43.7 (36.4-46.3) fL RDW Coeff of Igles[place] 13.2 (11.5-14.5) % Plt Count 278 (130-400) K/uL MPV 11.7 (9.4-12.3) fL Immature Gran % (Auto) 1.1 % Neut % (Auto) 75.3 % Lymph % (Auto) 12.7 % [place] % (Auto) 9.6 % Eos % (Auto) 0.7 % Baso % (Auto) 0.6 % Neut # (Auto) 6.13 (1.4-6.5) K/uL Lymph # (Auto) 1.03 L (1.2-3.4) K/uL [place] # (Auto) 0.78 (0.24-0.82) K/uL Eos # (Auto) 0.06 (0-0.50) K/uL Baso # (Auto) 0.05 (0-0.2) K/uL Immature Gran # (Auto) 0.09 H (0.00-0.02) K/uL Sodium 135 L (136-145) mmol/L Potassium 3.5 (3.5-5.1) mmol/L Chloride 102 (98-107) mmol/L Carbon Dioxide 25 (21-32) mmol/L Anion Gap 8 (3-11) BUN 13 (6-23) mg/dl Creatinine 0.66 (0.6-1.2) mg/dl Est Cr Clr Drug Dosing Not Reportable Est GFR ( Amer) 98.1 ml/min Est GFR (Non-Af Amer) 84.6 ml/min BUN/Creatinine Ratio 19.7 (10-20) Glucose 107 H (70-99(Fasting)) mg/dl Lactate 1.0 (0.4-2.0) mmol/L Calcium 8.5 (8.5-10.1) mg/dl Magnesium 1.8 (1.7-2.4) mg/dl Total Bilirubin 0.4 (0.2-1.0) mg/dl Direct Bilirubin 0.1 (0-0.2) mg/dl AST 22 (13-39) U/L ALT 20 (7-52) U/L Alkaline Phosphatase 93 (34-104) U/L Troponin I High Sens 8.0 (0-14) pg/ml Total Protein 6.8 (6.0-8.3) gm/dl Albumin 4.0 (3.4-5.0) gm/dl Procalcitonin (0-0.5) ng/ml 08/01/22 Range/Units 18:38 WBC (4.8-10.8) K/ul RBC (3.93-5.22) M/uL Hgb (12.0-16.0) g/dl Hct (34.1-44.9) % MCV (80.0-100.0) fL MCH (25.0-34.0) pg MCHC (32.0-36.0) g/dL RDW Std Deviation (36.4-46.3) fL RDW Coeff of Igles[place] (11.5-14.5) % Plt Count (130-400) K/uL MPV (9.4-12.3) fL Immature Gran % (Auto) % Neut % (Auto) % Lymph % (Auto) % [place] % (Auto) % Eos % (Auto) % Baso % (Auto) % Neut # (Auto) (1.4-6.5) K/uL Lymph # (Auto) (1.2-3.4) K/uL [place] # (Auto) (0.24-0.82) K/uL Eos # (Auto) (0-0.50) K/uL Baso # (Auto) (0-0.2) K/uL Immature Gran # (Auto) (0.00-0.02) K/uL Sodium (136-145) mmol/L Potassium (3.5-5.1) mmol/L Chloride (98-107) mmol/L Carbon Dioxide (21-32) mmol/L Anion Gap (3-11) BUN (6-23) mg/dl Creatinine (0.6-1.2) mg/dl Est Cr Clr Drug Dosing Est GFR ( Amer) ml/min Est GFR (Non-Af Amer) ml/min BUN/Creatinine Ratio (10-20) Glucose (70-99(Fasting)) mg/dl Lactate (0.4-2.0) mmol/L Calcium (8.5-10.1) mg/dl Magnesium (1.7-2.4) mg/dl Total Bilirubin (0.2-1.0) mg/dl Direct Bilirubin (0-0.2) mg/dl AST (13-39) U/L ALT (7-52) U/L Alkaline Phosphatase (34-104) U/L Troponin I High Sens (0-14) pg/ml Total Protein (6.0-8.3) gm/dl Albumin (3.4-5.0) gm/dl Procalcitonin 0.05 (0-0.5) ng/ml Administered Medications Discontinued Medications Acetaminophen (Acetaminophen 500 Mg Tab) 1,000 mg PO NOW STA Stop: 08/01/22 18:43 Last Admin: 08/01/22 18:50 Dose: 1,000 mg Documented By: CIARAN Diphenhydramine HCl (Diphenhydramine 50 Mg/Ml Vial) 12.5 mg IV NOW STA Stop: 08/01/22 19:59 Last Admin: 08/01/22 20:02 Dose: 12.5 mg Documented By: CIARAN Sodium Chloride (Nss 1000ml) 1,000 mls @ 999 mls/hr IV .Q1H1M ONE Stop: 08/01/22 19:30 Last Infusion: 08/01/22 19:47 Dose: 0 mls/hr Documented By: Admin: 08/01/22 18:46 Dose: 999 mls/hr Documented By: MES Metoclopramide HCl (Metoclopramide Hcl Inj 5 Mg/Ml 2 Ml Vial) 5 mg IV ONE ONE Stop: 08/01/22 19:59 Last Admin: 08/01/22 20:02 Dose: 5 mg Documented By: MES Ondansetron HCl (Ondansetron Inj 2 Mg/Ml 2 Ml Vial) 4 mg IV NOW STA Stop: 08/01/22 19:09 Last Admin: 08/01/22 19:25 Dose: 4 mg Documented By: CIARAN Imaging Data Radiologist's Impression: Chest X-Ray 08/01/22 18:29 XR chest 1V portable CLINICAL HISTORY: Sepsis COMPARISON STUDY: Chest radiograph July 08, 2022. FINDINGS: Chronic deformity of the left otitis incidentally noted. Mild left basilar opacity is present. Lungs are clear. There is no pneumothorax or pleural effusion. Cardiac size is stable. Mediastinal contours are normal. There is no evidence for pulmonary edema. IMPRESSION: Mild left basilar opacity. Atelectasis is favored. An infectious process could appear similar although is considered less likely. ACT 112: Negative or not required by law. Electronically signed by: Keyon Thompson M.D. 08/01/2022 7:[address] 08/01/22 18:41 CT OF THE HEAD WITHOUT CONTRAST CLINICAL HISTORY: Headache. COMPARISON STUDY: MRI of the brain November 20, [address] March 12, 2017. CT DOSE: 623.48 mGy.cm TECHNIQUE: Helical axial images of the head were obtained without IV contrast. Automated exposure control was utilized for the study. A dose lowering technique was utilized adhering to the principles of ALARA. FINDINGS: No acute intracranial hemorrhage, midline shift or mass effect is present. Mild white matter hypodensities are similar to prior exam and favor small vessel disease. The ventricular system is unremarkable. The basal cisterns are patent. No extra-axial collections are present. There are no findings to suggest acute dural sinus thrombosis or acute territorial infarct. No significant calvarial abnormalities are present. Visualized portions of the sinuses and mastoid air cells are clear. IMPRESSION: No acute intracranial findings. ACT 112: Negative or not required by law. Electronically signed by: Keyon Thompson M.D. 08/01/2022 7:47 PM Discharge Plan Visit Data Chief Complaint: Illness Stated Complaint: DRY HEAVING, NAUSEA, COVID + ED Provider: Frederick Garza Discharge Problem: COVID-19 Forms Stand Alone Forms: My [facility] Prescriptions Prescriptions: No Action estradiol 0.01 % (0.1 mg/gram) cream 1 g vaginal 2XWK Qty: 42.5 2RF Rx Instructions: 1g two times weekly. Massage gently on to the effected area atorvastatin 20 mg tablet 40 mg PO HS Qty: 180 3RF omeprazole 20 mg capsule,delayed release(DR/EC) 20 mg PO QAM Qty: 90 3RF azithromycin 250 mg tablet See Rx Instructions PO .COMPLEX Qty: 6 0RF Rx Instructions: STARTED 07/31/22 FOR 5 DAYS. take 500 mg today (day 1), then 250 mg for 4 days (days 2-5) PO; metoprolol succinate 50 mg tablet extended release 24 hr 50 mg PO QAM Qty: 90 3RF amlodipine 2.5 mg tablet 2.5 mg PO QAM Qty: 90 0RF telmisartan 80 mg tablet 80 mg PO DAILY hydrocodone-homatropine [Hydrocodone Compound] 5-1.5 mg/5 mL syrup 5 ml PO Q6H PRN (Reason: cough) Qty: 240 0RF calcium carbonate-vitamin D3 [Calcium 500 + D] 500 mg(1,250mg) -200 unit Tablet 1 tab PO HS Cimzia 400 mg/2 mL (200 mg/mL x 2) syringe kit 200 mg SUBCUT .[id number] Rx Instructions: DUE NEXT WK PreserVision AREDS 7,160 unit- 113 mg-100 unit tablet 1 tab PO BID multivitamin Tablet 1 tab PO QAM Paxlovid (EUA) 300 mg (150 mg x 2)-100 mg tablets,dose pack See Rx Instructions .ROUTE .COMPLEX Qty: 30 0RF Rx Instructions: STARTED 08/01/22---take TWO 150 mg tablets of nirmatrelvir with ONE 100 mg tablet of ritonavir twice daily for 5 days. PCR Covid Positive. GFR 87 zinc gluconate 50 mg Tablet 50 mg PO DAILY Referrals Referrals: Dania Alfonso MD [Primary Care Provider] -
[2022-08-01] MEDS ORDERED: ACETAMINOPHEN 500 MG TAB PO STA (18:42)
[2022-08-01 19:03] LABS: Basophils # (auto) 0.05 K/uL (0-0.2); Basophils % (auto) 0.6 %; Eosinophils # (auto) 0.06 K/uL (0-0.50); Eosinophils % (auto) 0.7 %; Hematocrit (blood only) 37.7 % (34.1-44.9); Hemoglobin 12.8 g/dl (12.0-16.0); Immature Granulocytes # (auto) 0.09 K/uL (0.00-0.02); Immature Granulocytes % (auto) 1.1 %; Lymphocytes # (auto) 1.03 K/uL (1.2-3.4); Lymphocytes % (auto) 12.7 %; Mean Corpuscular Volume 91.3 fL (80.0-100.0); Mean Platelet Volume 11.7 fL (9.4-12.3); Monocytes # (auto) 0.78 K/uL (0.24-0.82); Monocytes % (auto) 9.6 %; Neutrophils # (auto) 6.13 K/uL (1.4-6.5); Neutrophils % (auto) 75.3 %; Platelet Count 278 K/uL (130-400); RDW Coefficient of Variation 13.2 % (11.5-14.5); RDW Standard Deviation 43.7 fL (36.4-46.3); Red Blood Count 4.13 M/uL (3.93-5.22); White Blood Count 8.14 K/ul (4.8-10.8)
[2022-08-01] MEDS ORDERED: ONDANSETRON INJ 2 MG/ML 2 ML VIAL IV STA (19:08)
[2022-08-01 19:22] LABS: Alanine Aminotransferase 20 U/L (7-52); Alkaline Phosphatase 93 U/L (34-104); Anion Gap 8 (3-11); Aspartate Aminotransferase 22 U/L (13-39); BUN Creatinine Ratio 19.7 (10-20); Bilirubin Direct 0.1 mg/dl (0-0.2); Bilirubin,Total 0.4 mg/dl (0.2-1.0); Blood Urea Nitrogen 13 mg/dl (6-23); Calcium 8.5 mg/dl (8.5-10.1); Carbon Dioxide 25 mmol/L (21-32); Chloride 102 mmol/L (98-107); Est GFR (African American) 98.1 ml/min; Est GFR (Non-African American) 84.6 ml/min; Glucose 107 mg/dl (70-99(Fasting)); Magnesium 1.8 mg/dl (1.7-2.4); Potassium 3.5 mmol/L (3.5-5.1); Sodium 135 mmol/L (136-145); Total Protein 6.8 gm/dl (6.0-8.3)
--- NOTE | 2022-08-01 19:32 | XRay Report ---
XR chest 1V portable CLINICAL HISTORY: Sepsis COMPARISON STUDY: Chest radiograph July 08, 2022. FINDINGS: Chronic deformity of the left otitis incidentally noted. Mild left basilar opacity is prese nt. Lungs are clear. There is no pneumothorax or pleural effusion. Cardiac size is stable. Mediastina l contours are normal. There is no evidence for pulmonary edema. IMPRESSION: Mild left basilar opacity. Atelectasis is favored. An infectious process could appear si milar although is considered less likely. ACT 112: Negative or not required by law. Electronically signed by: Keyon Thompson M.D. 08/01/2022 7:31 PM
--- NOTE | 2022-08-01 19:48 | CT Scan Report ---
CT OF THE HEAD WITHOUT CONTRAST CLINICAL HISTORY: Headache. COMPARISON STUDY: MRI of the brain November 20, [address] March 12, 2017. CT DOSE: 623.48 mGy.cm TECHNIQUE: Helical axial images of the head were obtained without IV contrast. Automated exposure con trol was utilized for the study. A dose lowering technique was utilized adhering to the principles o f ALARA. FINDINGS: No acute intracranial hemorrhage, midline shift or mass effect is present. Mild white matte r hypodensities are similar to prior exam and favor small vessel disease. The ventricular system is u nremarkable. The basal cisterns are patent. No extra-axial collections are present. There are no find ings to suggest acute dural sinus thrombosis or acute territorial infarct. No significant calvarial a bnormalities are present. Visualized portions of the sinuses and mastoid air cells are clear. IMPRESSION: No acute intracranial findings. ACT 112: Negative or not required by law. Electronically signed by: Keyon Thompson M.D. 08/01/2022 7:47 PM
[2022-08-01] MEDS ORDERED: METOCLOPRAMIDE HCL INJ 5 MG/ML 2 ML VIAL IV ONE (19:58)
[2022-08-01] MEDS ORDERED: diphenhydrAMINE 50 MG/ML VIAL IV STA (19:58)
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
[2022-08-01 20:56] LABS: Appearance Urine Clear (Clear); Bacteria Urine Automated Negative (Negative); Bilirubin Urine Negative (Negative); Blood Urine Trace (Negative); Cast Urine Automated 0 /lpf (0-5); Color Urine Yellow; Glucose Urine UA Negative (Negative); Ketones Urine Trace (Negative); Leukocyte Esterase Urine Negative (Negative); Nitrite Urine Negative (Negative); Protein Urine Negative (Negative); RBC Urine Automated 0-4 /hpf (0-4); Urobilinogen Urine Negative (Negative); pH Urine 7.5 (4.5-7.5)
[2022-08-01] MEDS: ALBUTEROL HFA 8 GM INHALER INH SCH (21:03)
[2022-08-01] MEDS ORDERED: CALCIUM 600MG + VIT D 400 IU TAB PO SCH (23:20)
[2022-08-01] MEDS ORDERED: ONDANSETRON INJ 2 MG/ML 2 ML VIAL IV PRN (23:20)
[2022-08-01] MEDS ORDERED: dexAMETHasone 6 MG in SYRINGE 0 ML IV ONE (23:45)
[2022-08-01] MEDS ORDERED: REMDESIVIR 200 MG in SODIUM CHLORIDE 0.9% 210 ML IV ONE (23:45)
[2022-08-01] MEDS ORDERED: NSS + 20MEQ KCL 20 MEQ/1,000 ML BAG IV SCH (23:45)
[2022-08-01] MEDS: ACETAMINOPHEN 325 MG TAB PO PRN (23:59)
[2022-08-01] MEDS: ATORVASTATIN 40 MG TAB PO SCH (23:59)
[2022-08-02] MEDS ORDERED: ENOXAPARIN INJ 40 MG/0.4 ML SYR SQ SCH
[2022-08-02] MEDS: ATORVASTATIN 40 MG TAB PO SCH (00:42)
--- NOTE | 2022-08-02 02:00 | Billing Data ---
Date of Service August 02, 2022 Coding Level of Care Code 79379 Initial Inpt Care Lvl 3
[2022-08-02 05:07] LABS: Basophils # (auto) 0.03 K/uL (0-0.2); Basophils % (auto) 0.4 %; Hematocrit (blood only) 36.1 % (34.1-44.9); Hemoglobin 12.3 g/dl (12.0-16.0); Immature Granulocytes # (auto) 0.09 K/uL (0.00-0.02); Immature Granulocytes % (auto) 1.3 %; Lymphocytes # (auto) 1.21 K/uL (1.2-3.4); Lymphocytes % (auto) 17.6 %; Mean Corpuscular Hemoglobin 30.9 pg (25.0-34.0); Mean Corpuscular Hgb Conc 34.1 g/dL (32.0-36.0); Mean Corpuscular Volume 90.7 fL (80.0-100.0); Monocytes # (auto) 0.23 K/uL (0.24-0.82); Monocytes % (auto) 3.4 %; Neutrophils % (auto) 77.3 %; Platelet Count 246 K/uL (130-400); RDW Coefficient of Variation 13.2 % (11.5-14.5); RDW Standard Deviation 43.9 fL (36.4-46.3); Red Blood Count 3.98 M/uL (3.93-5.22); White Blood Count 6.86 K/ul (4.8-10.8)
[2022-08-02 05:40] LABS: Albumin Globulin Ratio 1.5 (0.9-2); Albumin Level 3.9 gm/dl (3.4-5.0); BUN Creatinine Ratio 17.5 (10-20); Bilirubin,Total 0.3 mg/dl (0.2-1.0); Calcium 8.5 mg/dl (8.5-10.1); Creatinine Clr Calc Pharmacy 67.6 ml/min; Est GFR (African American) 102.9 ml/min; Est GFR (Non-African American) 88.8 ml/min; Globulin 2.6 gm/dl (2.5-4.0); Magnesium 1.9 mg/dl (1.7-2.4); Potassium 3.7 mmol/L (3.5-5.1); Total Protein 6.5 gm/dl (6.0-8.3)
[2022-08-02] MEDS: ACETAMINOPHEN 325 MG TAB PO PRN ×2 (06:18→10:55)
[2022-08-02] MEDS: ALBUTEROL HFA 8 GM INHALER INH SCH ×3 (08:22→15:11)
[2022-08-02] MEDS ORDERED: dexAMETHasone 6 MG in SYRINGE 0 ML IV SCH (09:00)
[2022-08-02] MEDS ORDERED: ZINC SULFATE 220 MG CAPSULE PO SCH (09:00)
[2022-08-02] MEDS ORDERED: PANTOprazole 40 MG TAB PO SCH (09:00)
[2022-08-02] MEDS ORDERED: MULTIVITAMIN TAB PO SCH (09:00)
[2022-08-02] MEDS ORDERED: TELMISARTAN 40 MG TAB PO SCH (09:00)
[2022-08-02] MEDS ORDERED: METOPROLOL SUCC 50MG EXT REL TAB PO SCH (09:00)
[2022-08-02] MEDS ORDERED: Nursing to Pharmacy Communication SCH (12:30)
[2022-08-02] MEDS: DOXYCYCLINE HYCLATE 100 MG in DEXTROSE 5% 100 ML IV SCH ×2 (12:33)
--- NOTE | 2022-08-02 17:17 | Discharge Summary ---
Date of Service August 02, 2022 Admission HPI Per Admitting Provider The patient is a 77-year-old female with a past medical history including rheumatoid arthritis immunosuppressed on Cimzia, APCs, calcium pyrophosphate arthropathy, hypertension, hyperlipidemia, osteopenia, GERD, and palpitations. She presents to the emergency department as noted above, and represents due to worsening of symptoms. She has had cough since she was at voting duty Jun 30, neg covid test Jul 01 and then again Jul 08. Two courses of abx taken for bronchitis in this time- Doxy and Augmentin 06/02 , patient presented with a cough and achy upper legs and was covid 19 positive in the ED. Discharged on Paxlovid Returned with severe frontal headache, dry heaves and o2 sats were marginal- 90% RA. Non produtcive cough. CXR 08/01 showed a possible left basilar opacity. Admitted w dx covid 19 pneumonia, started on dexa 6 mg iv and remdesivir iv. Paxlovid was held Principal Diagnosis covid-19 pneumonia. Discharge Exam I first met her at 1700 h hospital day 2 Eating well. On RA. impatient to go home. She looked well. Lucidly answered questions and giving detailed h/o cough dating back to Jun 30. Looked 10 years younger. Headache was gone, was feeling much better Walked around room on RA Chest : CTA Ext : mild ulnar deviation of fingers b/l, not thumb No idea Skin no rash CVS : s1, s2, no murmur CARDIOTHORACIC ICU RN : normal rapid gait Cheerful, conversant, normal insight and judgement. Discharge Data Allergies Allergy/AdvReac Type Severity Reaction Status Date / Time ciprofloxacin [From Cipro] Allergy Unknown Unknown Verified 08/01/22 19:31 etanercept [From Enbrel] AdvReac Intermediate SWELLING Verified 08/01/22 19:31 AT INJECTION SITE hydrochlorothiazide AdvReac Intermediate LEG CRAMPS Verified 08/01/22 19:31 lisinopril AdvReac Intermediate Cough Verified 08/01/22 19:31 Consultations 08/01/22 20:13 ED Decision to Admit Stat Ordered Studies 08/01/22 18:41 CT head/brain wo con Stat Hospital Course (1) COVID-19: COVID-19 infection with hypoxia/immunocompromised state- Discontinued Paxlovid due to nausea preventing usage (on admission ) Dexamethasone 6 mg IV daily Remdesivir IV per protocol begun but patient declined. By hospital Day 2, she wanted to take her Paxlovid, which delivered from home Patient was needing any 02 morning of hospital day 2- looked well and impatient to go home. Sats 98% RA at 1700 h 12/11 Doxycycline 100 mg IV twice daily given here. No need to continue Guaifenesin extended release 12 mg p.o. 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 (5) Calcium pyrophosphate arthropathy: (6) Hypertension: home med amlodipine held as bp borderline low. To consider resumption when sees PCP in 3-4 days Continue metoprolol succinate with hold parameters (7) Hyperlipidemia: Continue atorvastatin (8) GERD (gastroesophageal reflux disease): Change omeprazole to pantoprazole Plan also has covid- is at home. 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 I gave her Dexa 6 mg po for 7 days in light of her transient hypoxia. To comlete Paxlovid prescribed yesterday in ED first visit, see PCP by 08/05. Total Time Total Time Spent Total Time Spent (In Minutes): 30 Discharge Plan Discharge Items Patient Disposition: Home - Self-Care Reason For Visit: COVID-19 PNEUMONIA WITH HYPOXIA, GASTROENTERITIS Discharge Diagnosis: covid 19 pneumonia Activity: Resume your previous activity Non-emergency contact: Primary Care Provider Call non-emergency contact if: you have any medication questions Follow-up/Referrals: Dania Alfonso MD [Primary Care Provider] - Diet: Heart Healthy Addtl Attending Provider Instructions: see PCP by 08/06/2022 Check pulse oximetry twice a day AND when feel short fo breath If under 91%, seek medical attention. stay home and isolate until 08/05/2022 Your amlodipine has been stopped. Your bp is doing well with just two bp meds to go home on. Pending Studies at Discharge: No Medications and DC Order Prescriptions: New dexamethasone 6 mg tablet 6 mg PO DAILY Qty: 7 0RF Continued estradiol 0.01 % (0.1 mg/gram) cream 1 g vaginal 2XWK Qty: 42.5 2RF Rx Instructions: 1g two times weekly. Massage gently on to the effected area atorvastatin 20 mg tablet 40 mg PO HS Qty: 180 3RF omeprazole 20 mg capsule,delayed release(DR/EC) 20 mg PO QAM Qty: 90 3RF azithromycin 250 mg tablet See Rx Instructions PO .COMPLEX Qty: 6 0RF Rx Instructions: STARTED 07/31/22 FOR 5 DAYS. take 500 mg today (day 1), then 250 mg for 4 days (days 2-5) PO; metoprolol succinate 50 mg tablet extended release 24 hr 50 mg PO QAM Qty: 90 3RF telmisartan 80 mg tablet 80 mg PO DAILY hydrocodone-homatropine [Hydrocodone Compound] 5-1.5 mg/5 mL syrup 5 ml PO Q6H PRN (Reason: cough) Qty: 240 0RF calcium carbonate-vitamin D3 [Calcium 500 + D] 500 mg(1,250mg) -200 unit Tablet 1 tab PO HS Cimzia 400 mg/2 mL (200 mg/mL x 2) syringe kit 200 mg SUBCUT .[id number] Rx Instructions: DUE NEXT WK PreserVision AREDS 7,160 unit- 113 mg-100 unit tablet 1 tab PO BID multivitamin Tablet 1 tab PO QAM Paxlovid (EUA) 300 mg (150 mg x 2)-100 mg tablets,dose pack See Rx Instructions .ROUTE .COMPLEX Qty: 30 0RF Rx Instructions: STARTED 08/01/22---take TWO 150 mg tablets of nirmatrelvir with ONE 100 mg tablet of ritonavir twice daily for 5 days. PCR Covid Positive. GFR 87 zinc gluconate 50 mg Tablet 50 mg PO DAILY Discontinued amlodipine 2.5 mg tablet 2.5 mg PO QAM Qty: 90 0RF Discharge Orders: Discharge Order (Routine); Ordered 08/02/22 Ordered By: Lauro Calles Admission Data Admit Date/Time: 08/01/22 20:46 Attending Provider: Lauro Calles Admit Provider: Charlie Cyr Primary Care Provider: Dania Alfonso Other Providers: Charlie Cyr Coding Level of Care Code D/C DAY MANAGEMENT >30 MINS Diagnoses COVID-19 U07.1 Hypoxia R09.02 Immunocompromised state due to drug therapy D84.821; Z79.899 Rheumatoid arthritis M06.9 Calcium pyrophosphate arthropathy M11.80 Hypertension I10 Hypertension type: primary hypertension Hyperlipidemia E78.5 GERD (gastroesophageal reflux disease) K21.9
[2022-08-02] MEDS ORDERED: REMDESIVIR 100 MG in SODIUM CHLORIDE 0.9% 230 ML IV SCH (20:45)
[2022-08-02] MEDS ORDERED: NIRMATRELVIR/RITONAVIR 1 EA TAB PO SCH (21:00)
--- NOTE | 2022-08-03 06:07 | Electrocardiogram Report ---
Test Reason : Blood Pressure : / mmHG Vent. Rate : 108 BPM Atrial Rate : 108 BPM P-R Int : 148 ms QRS Dur : 140 ms QT Int : 400 ms P-R-T Axes : 058 057 004 degrees QTc Int : 536 ms Poor data quality, interpretation may be adversely affected Sinus tachycardia Possible Left atrial enlargement Right bundle branch block T wave abnormality, consider inferior ischemia T wave abnormality, consider anterolateral ischemia Abnormal ECG When compared with ECG of 08-JUL-2022 21:54, T wave inversion now evident in Anterolateral leads Confirmed by Jay Oates ([id number]) on 08/03/2022 6:06:55 AM Referred By: Temitope Mohan Confirmed By:Jay Oates
== END 2022-08-02 19:18 | disposition home or self-care (01) | DRG 177 ==
LOC: ED 18:19 → SUATTDRO 20:46 → 4W 20:46